=== PATIENT | male | born 1965 | race African-American/Black ===

== ENCOUNTER 2018-10-14 02:12 | Emergency (ER) | payer MEDICAID ==
[~2018-10-14] VITALS: Ht 185.4 cm; Wt 96.4 kg
[2018-10-14] MEDS ORDERED: ADAL40KI SQ (02:26)
[2018-10-14] MEDS ORDERED: [UNRECOGNIZED DRUG - CODE] SQ (02:26)
[2018-10-14] MEDS ORDERED: IBUP-2071 PO (02:26)
[2018-10-14] MEDS ORDERED: HYDROmorphone 2 MG/ML SYRINGE IVP ONE (02:45)
[2018-10-14] MEDS ORDERED: ONDANSETRON HCL 4 MG/2 ML VIAL IVP ONE (02:45)
[2018-10-14 03:14] LABS: BASOPHILS % (AUTO) 1.1 % (0.0-2.0); EOSINOPHILS % (AUTO) 3.6 % (1.0-6.0); HEMATOCRIT 40.3 % (41-53); HEMOGLOBIN 13.5 g/dL (13.5-17.5); LYMPHOCYTES % (AUTO) 23.7 % (22.0-44.0); MEAN CORPUSCULAR HEMOGLOBIN 33.1 pg (26.0-34.0); MEAN CORPUSCULAR HGB CONC 33.5 G/dL (31.0-37.0); MEAN CORPUSCULAR VOLUME 99 fL (80-100); MONOCYTES # (AUTO) 0.6 K/uL (0.1-1.0); MONOCYTES % (AUTO) 6.8 % (2.0-9.0); NEUTROPHILS # (AUTO) 5.4 K/uL (1.8-7.7); NEUTROPHILS % (AUTO) 64.8 % (40.0-70.0); PLATELET COUNT (AUTO) 236 K/uL (150-450); RED BLOOD CELL COUNT(AUTO) 4.09 MIL/uL (4.50-5.90); RED CELL DISTRIBUTION WIDTH 12.9 % (11.5-14.5)
[2018-10-14 03:31] LABS: ANION GAP 8 mmol/L (8-16); CARBON DIOXIDE 26 mmol/L (22-29); CHLORIDE 104 mmol/L (98-107); CREATININE 0.97 mg/dL (0.60-1.30); GLOMERULAR FILTR. RATE CALC > 60 mL/min (>60); GLUCOSE,RANDOM 110 mg/dL (70-110); POTASSIUM 4.1 mmol/L (3.5-5.1); SODIUM SERUM 138 mmol/L (136-145); UREA NITROGEN, BLOOD 16 mg/dL (7-18)
[2018-10-14 03:37] LABS: ALANINE AMINOTRANSFERASE 30 U/L (12-78); ALBUMIN 3.7 g/dL (3.4-5.0); ALKALINE PHOSPHATASE 113 U/L (46-116); ASPARTATE AMINOTRANSFERASE 22 U/L (15-37); BILIRUBIN,TOTAL 0.5 mg/dL (0.1-1.0); C-REACTIVE PROTEIN QUANT 3.36 mg/dL (0.00-0.30); TOTAL PROTEIN, SERUM 7.3 g/dL (6.4-8.2)
[2018-10-14 03:55] VITALS: BP 168/85
[2018-10-14] MEDS ORDERED: HYDROCODONE/ACETAMINOPHEN 5-325 MG TABLET PO ONE (04:30)
== END 2018-10-14 04:38 | disposition home or self-care (01) ==
LOC: EMS 02:14
DX: M06.9 Rheumatoid arthritis, unspecified (principal); F17.210 Nicotine dependence, cigarettes, uncomplicated
CPT/HCPCS: 36415; 80053; 85025; 86140; 96374; 96375; 99283; 99406; J1170; J2405

== ENCOUNTER 2021-09-19 16:54 | Emergency (ER) | payer MEDICAID ==
[~2021-09-19] VITALS: Ht 188 cm; Wt 93.2 kg
[~2021-09-19 16:54] MED LIST: ADAL40KI SQ; IBUP-2071 PO; [UNRECOGNIZED DRUG - CODE] SQ
[2021-09-19] MEDS ORDERED: IBUPROFEN 600 MG TABLET PO ONE (18:00)
[2021-09-19 18:06] LABS: COVID AG,FIA SOURCE NASOPHARYNGEAL
[2021-09-19 18:33] LABS: INFLUENZA TYPE A NEGATIVE FOR TYPE A (NEGATIVE); INFLUENZA TYPE B POSITIVE FOR TYPE B (NEGATIVE)
[2021-09-19 19:25] VITALS: BP 149/101
[2021-09-19] MEDS ORDERED: AZIT-84 PO (19:35)
[2021-09-19] MEDS ORDERED: AZITHROMYCIN 500 MG TABLET PO ONE (19:45)
== END 2021-09-19 21:04 | disposition home or self-care (01) ==
LOC: EDBD 17:00 → EMS 17:00
DX: J18.9 Pneumonia, unspecified organism (principal); J11.1 Influenza due to unidentified influenza virus with other respiratory manifestations; F17.210 Nicotine dependence, cigarettes, uncomplicated; Z79.899 Other long term (current) drug therapy; Z20.822 Contact with and (suspected) exposure to COVID-19
CPT/HCPCS: 71045; 87426; 87804; 99284; Q9967

== ENCOUNTER → 2023-08-23 | Emergency (ER) | payer MEDICAID ==
[~2023-08-23] VITALS: Ht 185.4 cm; Wt 97.7 kg
[~2023-08-23] MED LIST changes: +AMLO5TAB66 PO; +ATOR40TA71 PO; +AZIT-103 PO; +DIPH25CA85 PO; +DiphenhydrAMINE HCL 25 MG CAPSULE PO ONE; +IBUP-1493 PO; +IBUP-2070 PO; -IBUP-2071 PO; +LOSA-381 PO; +PRED-554 PO; +PredniSONE 20 MG TABLET PO ONE; +UPAD15TA PO
[2023-08-23 09:25] VITALS: BP 151/87; PULSE 110; RESP 16; TEMP 98
== END | disposition still patient (30) ==
LOC: EMS 09:21
DX: R22.0 Localized swelling, mass and lump, head (principal); T50.905A Adverse effect of unspecified drugs, medicaments and biological substances, initial encounter; M19.90 Unspecified osteoarthritis, unspecified site; F17.210 Nicotine dependence, cigarettes, uncomplicated; Y92.89 Other specified places as the place of occurrence of the external cause
CPT/HCPCS: 99283; J7512

== ENCOUNTER 2024-06-28 18:08 | Emergency (ER) | payer MEDICARE, MEDICAID ==
[~2024-06-28] VITALS: Ht 182.9 cm; Wt 106.8 kg
[~2024-06-28 18:08] MED LIST changes: -ADAL40KI SQ; -AZIT-103 PO; -DiphenhydrAMINE HCL 25 MG CAPSULE PO ONE; -IBUP-1493 PO; -PredniSONE 20 MG TABLET PO ONE
[2024-06-28 18:15] VITALS: BP 146/89; PULSE 104; RESP 18; TEMP 97.6; O2SAT 95
[2024-06-28 19:14] LABS: BASOPHILS % (AUTO) 0.9 % (0.0-2.0); EOSINOPHILS % (AUTO) 1.5 % (1.0-6.0); HEMATOCRIT 42.8 % (41-53); HEMOGLOBIN 14.4 g/dL (13.5-17.5); LYMPHOCYTES # (AUTO) 1.4 K/uL (1.0-4.8); LYMPHOCYTES % (AUTO) 15.3 % (22.0-44.0); MEAN CORPUSCULAR HEMOGLOBIN 35.1 pg (26.0-34.0); MEAN CORPUSCULAR HGB CONC 33.6 G/dL (31.0-37.0); MEAN CORPUSCULAR VOLUME 104 fL (80-100); MONOCYTES # (AUTO) 0.5 K/uL (0.1-1.0); NEUTROPHILS % (AUTO) 76.3 % (40.0-70.0); PLATELET COUNT (AUTO) 252 K/uL (150-450); RED CELL DISTRIBUTION WIDTH 13.4 % (11.5-14.5); WHITE BLOOD COUNT (AUTO) 9.2 K/uL (4.5-11.0)
[2024-06-28 19:16] LABS: RBC MORPHOLOGY COMMENT ABNORMAL RBC MORPH
[2024-06-28 19:23] LABS: ANION GAP 6 mmol/L (8-16); CALCIUM, TOTAL 8.5 mg/dL (8.8-10.5); CARBON DIOXIDE 27 mmol/L (22-29); CHLORIDE 104 mmol/L (98-107); CREATININE 1.24 mg/dL (0.60-1.30); GLOMERULAR FILTR. RATE CALC > 60 mL/min (>60); GLUCOSE,RANDOM 149 mg/dL (70-110); POTASSIUM 3.9 mmol/L (3.5-5.1); SODIUM SERUM 137 mmol/L (136-145); UREA NITROGEN, BLOOD 15 mg/dL (7-18)
[2024-06-28 19:29] LABS: ALANINE AMINOTRANSFERASE 59 U/L (12-78); ALBUMIN 3.5 g/dL (3.4-5.0); ALKALINE PHOSPHATASE 114 U/L (46-116); ASPARTATE AMINOTRANSFERASE 38 U/L (15-37); BILIRUBIN,TOTAL 0.8 mg/dL (0.1-1.0); LIPASE 29 U/L (16-77); TOTAL PROTEIN, SERUM 6.8 g/dL (6.4-8.2)
[2024-06-28 20:41] LABS: COVID AG,FIA SOURCE NASAL SWAB
[2024-06-28 20:59] LABS: RAPID GROUP A STREP NEGATIVE (NEGATIVE)
[2024-06-28 21:04] LABS: SARS-COV2 (COVID) ANTIGEN,FIA Negative (Negative)
[2024-06-28 21:13] LABS: INFLUENZA TYPE A NEGATIVE FOR TYPE A (NEGATIVE); INFLUENZA TYPE B NEGATIVE FOR TYPE B (NEGATIVE)
[2024-06-28] MEDS ORDERED: BENZ-227 PO (21:59)
[2024-06-28] MEDS ORDERED: IBUP-1554 PO (21:59)
[2024-06-28] MEDS ORDERED: AZIT250T9 PO (21:59)
[2024-06-28] MEDS ORDERED: DIPH-1130 PO (21:59)
[2024-06-28] MEDS ORDERED: GUAIFDM PO (21:59)
[2024-06-28] MEDS ORDERED: ALBU18HF12 IH (21:59)
[2024-06-28] MEDS ORDERED: ACET-2080 PO (21:59)
[2024-06-28] MEDS: CEPHALEXIN MONOHYDRATE 500 MG CAPSULE PO ONE (22:04)
[2024-06-28] MEDS: ACETAMINOPHEN 500 MG TABLET PO ONE (22:04)
[2024-06-28] MEDS: GuaiFENesin/D-METHORPHAN [SUGAR-FREE] 200-20MG/10 ML SYRUP UDCUP PO ONE (22:11)
[2024-06-28] MEDS: BENZONATATE 100 MG CAPSULE PO ONE (22:11)
== END 2024-06-28 22:17 | disposition home or self-care (01) ==
LOC: EMS 18:08
DX: J18.9 Pneumonia, unspecified organism (principal); E78.00 Pure hypercholesterolemia, unspecified; I10 Essential (primary) hypertension; M06.9 Rheumatoid arthritis, unspecified; Z79.631 Long term (current) use of antimetabolite agent; Z20.822 Contact with and (suspected) exposure to COVID-19
CPT/HCPCS: 71045; 80048; 80076; 83690; 85025; 87430; 87804; 99284; 36415-L1; 36415-TC